=== PATIENT | male | born 1945 | race Caucasian/White ===

== ENCOUNTER 2019-05-11 07:41 | Inpatient (IN) ==
[2019-05-11] MEDS ORDERED: Ondansetron ODT 4 MG TAB.RAPDIS SL PRN (10:08)
[2019-05-11] MEDS ORDERED: *HR* OxyCODONE Immed Rel 5 MG TABLET PO PRN (10:13)
[2019-05-11] MEDS: Ringers Solution, Lactated 1,000 ML IVC SCH ×2 (11:09→20:07)
[2019-05-11] MEDS: Aspirin 81 MG TAB.CHEW PO SCH (16:07)
[2019-05-11] MEDS: carBAMazepine 200 MG TABLET PO SCH ×2 (16:07→20:07)
[2019-05-11] MEDS: (Glucosamine Sulfate Dipot Chlr [Glucosamine] 1,000 MG) PO SCH (22:36)
[2019-05-11] MEDS: UBIDECARENONE 400 MG PO SCH (22:37)
[2019-05-12 02:30] LABS: BUN/Creatinine Ratio 18 (6-26); Blood Urea Nitrogen 14 mg/dL (8-23); Calcium 8.5 mg/dL (8.6-10.3); Carbon Dioxide 27 mEq/L (23-29); Chloride 101 mEq/L (98-107); Glucose 98 mg/dL (70-105); Magnesium 2.2 mg/dL (1.6-2.6); Osmolality,Calculated 282 (280-300); Phosphorous 3.1 mg/dL (2.7-4.5); Potassium 4.3 mEq/L (3.5-5.1); Sodium 136 mEq/L (136-145); eGFR For African Americans > 60 (> 60); eGFR For Non-African Americans > 60 (> 60)
[2019-05-12 02:33] LABS: Basophils # 0.1 K/mcL (0.0-0.2); Basophils % 0.7 %; Eosinophils # 0.1 K/mcL (0.0-0.6); Hematocrit 37.3 % (37.5-50.1); Hemoglobin 12.9 g/dL (12.9-16.9); Immature Granulocytes % 0.1 % (0-4); Lymphocytes # 1.9 K/mcL (0.6-4.6); Lymphocytes % 26.8 %; Mean Corpuscular HGB Conc 34.6 g/dL (31.6-35.5); Mean Corpuscular Hemoglobin 30.1 pg (28.0-33.3); Mean Corpuscular Volume 87.1 fL (83.0-100.0); Mean Platelet Volume 8.5 fL (9.4-12.4); Monocytes # 0.8 K/mcL (0.0-1.3); Monocytes % 10.8 %; Neutrophils # 4.4 K/mcL (1.6-8.9); Platelet Count 230 K/mcL (140-400); Red Blood Count 4.28 M/mcL (4.19-5.50); Red Cell Distribution Width 13.2 % (11.5-14.5); Segmented Neutrophils % 60.6 %; White Blood Count 7.2 K/mcL (4.3-11.1)
[2019-05-12] MEDS ORDERED: Ondansetron 4 MG/2 ML VIAL IVP STA (07:19)
[2019-05-12] MEDS: carBAMazepine 200 MG TABLET PO SCH ×3 (08:31→20:00)
[2019-05-12] MEDS: amLODIPine 5 MG TABLET PO SCH (08:31)
[2019-05-12] MEDS: Fluticasone Propionate Nasal 50 MCG/SPRAY BOTTLE NS SCH (08:32)
[2019-05-12] MEDS: (Glucosamine Sulfate Dipot Chlr [Glucosamine] 1,000 MG) PO SCH (08:33)
[2019-05-12] MEDS: UBIDECARENONE 400 MG PO SCH (08:33)
[2019-05-12] MEDS: *HR* Heparin 5,000 UNIT/ML VIAL SQ SCH (18:07)
[2019-05-12] MEDS ORDERED: *HR* Metoprolol 5 MG/5 ML VIAL IVP ONE (22:56)
[2019-05-13] MEDS ORDERED: *HR* LORazepam 2 MG/ML VIAL IVP ONE (03:35)
[2019-05-13] MEDS: *HR* Heparin 5,000 UNIT/ML VIAL SQ SCH ×2 (05:33→18:12)
[2019-05-13 06:11] LABS: Hemoglobin 13.6 g/dL (12.9-16.9); Mean Corpuscular HGB Conc 34.9 g/dL (31.6-35.5); Mean Corpuscular Hemoglobin 30.7 pg (28.0-33.3); Mean Platelet Volume 8.2 fL (9.4-12.4); Platelet Count 225 K/mcL (140-400); Red Blood Count 4.43 M/mcL (4.19-5.50); Red Cell Distribution Width 12.9 % (11.5-14.5); White Blood Count 6.8 K/mcL (4.3-11.1)
[2019-05-13 06:32] LABS: BUN/Creatinine Ratio 15 (6-26); Blood Urea Nitrogen 11 mg/dL (8-23); Calcium 8.9 mg/dL (8.6-10.3); Carbon Dioxide 25 mEq/L (23-29); Chloride 99 mEq/L (98-107); Glucose 107 mg/dL (70-105); Osmolality,Calculated 276 (280-300); Potassium 3.8 mEq/L (3.5-5.1); Sodium 133 mEq/L (136-145); eGFR For African Americans > 60 (> 60); eGFR For Non-African Americans > 60 (> 60)
[2019-05-13] MEDS: Fluticasone Propionate Nasal 50 MCG/SPRAY BOTTLE NS SCH (08:05)
[2019-05-13] MEDS: amLODIPine 5 MG TABLET PO SCH (08:06)
[2019-05-13] MEDS: carBAMazepine 200 MG TABLET PO SCH ×3 (08:06→20:57)
[2019-05-13] MEDS ORDERED: Ondansetron 4 MG/2 ML VIAL IVP PRN (09:52)
[2019-05-13] MEDS: Acetaminophen 325 MG TABLET PO PRN ×2 (11:33→22:41)
[2019-05-13] MEDS ORDERED: amLODIPine 5 MG TABLET PO ONE (11:43)
[2019-05-13] MEDS ORDERED: *HR* Labetalol 20 MG/4 ML SYRINGE IVP ONE (15:28)
[2019-05-13] MEDS: Aspirin 81 MG TAB.CHEW PO SCH (16:23)
[2019-05-14] MEDS: *HR* Heparin 5,000 UNIT/ML VIAL SQ SCH (06:39)
[2019-05-14 07:55] LABS: Hematocrit 39.2 % (37.5-50.1); Hemoglobin 13.8 g/dL (12.9-16.9); Mean Corpuscular HGB Conc 35.2 g/dL (31.6-35.5); Mean Corpuscular Hemoglobin 30.8 pg (28.0-33.3); Mean Corpuscular Volume 87.5 fL (83.0-100.0); Mean Platelet Volume 8.7 fL (9.4-12.4); Platelet Count 260 K/mcL (140-400); Red Blood Count 4.48 M/mcL (4.19-5.50); Red Cell Distribution Width 12.6 % (11.5-14.5)
[2019-05-14 08:14] LABS: BUN/Creatinine Ratio 20 (6-26); Blood Urea Nitrogen 19 mg/dL (8-23); Calcium 8.9 mg/dL (8.6-10.3); Carbon Dioxide 24 mEq/L (23-29); Chloride 95 mEq/L (98-107); Glucose 101 mg/dL (70-105); Osmolality,Calculated 276 (280-300); Potassium 3.4 mEq/L (3.5-5.1); Sodium 132 mEq/L (136-145); eGFR For African Americans > 60 (> 60); eGFR For Non-African Americans > 60 (> 60)
[2019-05-14] MEDS ORDERED: Potassium Chloride Elixir 20 MEQ/15 ML UDC PO ONE (08:31)
[2019-05-14] MEDS: amLODIPine 5 MG TABLET PO SCH (09:31)
[2019-05-14] MEDS: carBAMazepine 200 MG TABLET PO SCH (09:31)
[2019-05-14] MEDS: Fluticasone Propionate Nasal 50 MCG/SPRAY BOTTLE NS SCH (09:31)
[2019-05-14 10:18] VITALS: BP 123/77
[2019-05-14] MEDS ORDERED: amLODIPine 5 MG TABLET PO ONE (11:22)
[2019-05-14] MEDS ORDERED: Psyllium 1 PACKET POWD.PACK PO SCH (15:00)
== END 2019-05-14 15:00 | disposition home or self-care (01) | DRG 390 ==
LOC: 3ANU → SUATTDRO 21:39
PROVIDERS: ADMIT Internal Medicine; ATTEND Internal Medicine